=== PATIENT | female | born 1975 | race Caucasian/White ===

== ENCOUNTER 2024-12-24 10:04 | Emergency (ER) | payer MEDICAID, SELFPAY ==
[2024-12-24 10:32] VITALS: BP 184/134; BP 186/124; PULSE 78; RESP 18; TEMP 36.4; O2SAT 98; BMI 36.6
--- NOTE | 2024-12-24 11:05 | EDNOTE_ITS ---
ED Skin Abcess FB-RME/HPI General Chief complaint: Skin/Abscess/Foreign Body Stated complaint: Right leg abscess Time Seen by Provider: 12/24/24 10:29 Arrival date/time: 12/24/24 10:04 Limitations: no limitations RME / HPI RME / HPI narrative: 49-year-old female with past medical history of Alexa's thyroiditis, hypertension, CABG, hyperlipidemia presents for evaluation of right pelvic lesion x 3 days. She describes it is painful and swollen. She denies fever, spreading redness, weakness, numbness, tingling, back pain, neck pain, chest pain, shortness of breath. She states that she was seen by her primary care doctor and advised to take sitz bath's. She is currently taking doxycycline for these concerns. Patient states she has had a tetanus within the last 5 years. MD complaint: abscess/boil Onset (ago): day(s) Tetanus up to date: yes Location: genitals Consistency: constant Relieving factors: none Exacerbating factors: palpation Context: none Associated symptoms: denies other symptoms Related Data Home Medications ?Medication ?Instructions ?Recorded ?Confirmed levothyroxine 125 mcg tablet 125 mcg PO QDAY 07/10/19 07/19/22 atorvastatin 40 mg tablet 40 mg PO QDAY 07/19/2207/19 carvedilol 3.125 mg tablet 3.125 mg PO QDAY 07/19/22 0 07/19/22 dapagliflozin propanediol 10 mg 10 mg PO QDAY 07/19/22 07/19/22 tablet (Farxiga) furosemide 20 mg tablet 20 mg PO QDAY 07/19/2207/19 hydrocodone 5 mg-acetaminophen 325 1 tab PO Q6H PRN Pa in 07/19/22 07/19/22 mg tablet lisinopril 10 mg tablet 10 mg PO QDAY 07/19/2207/19 potassium chloride 20 mEq 20 meq PO QDAY 07/19/2207/08 tablet,extended release(part/cryst) torsemide 10 mg tablet 10 mg PO QDAY 07/19/2207/19 Previous Rx's ?Medication ?Instructions ?Recorded tramadol 100 mg tablet 100 mg PO Q6H PRN pain #20 t abs 07/02/22 amoxicillin 875 mg-potassium 1 tab PO BID #14 tabs 06/29 clavulanate 125 mg tablet doxycycline hyclate 100 mg capsule 100 mg PO BID #14 c aps 07/19/22 albuterol sulfate 90 mcg/actuation 2 inh inhalation Q4 H PRN shortness 03/11/24 aerosol inhaler of breath or wheezing #8.5 g leonidas Allergies Allergy/AdvReac Type Severity Reaction Status Date / Time nitrofurantoin AdvReac Severe VOMITING Verified 12/24/24 10:09 Review of Systems Constitutional Constitutional: Denies body ache(s), Denies chills, Denies fever(s), Denies headache(s) and Denies lethargy ENT Ears, Nose, Mouth, and Throat: Denies disequilibrium, Denies dizziness, Denies otalgia, Denies facial pain, Denies headache(s) and Denies neck pain Cardiovascular Cardiovascular: Denies chest pain, Denies dyspnea and Denies leg edema Respiratory Respiratory: Denies cough and Denies dyspnea Gastrointestinal Gastrointestinal: Denies abdominal pain, Denies change in bowel habits, Denies nausea and Denies vomiting Genitourinary Genitourinary: Denies dysuria, Reports genital lesions, Denies hematuria, Denies vaginal discharge and Denies vaginal pruritus Musculoskeletal Musculoskeletal: Denies arthralgias, Denies back pain and Denies neck pain Integumentary/Breasts Skin/Breast: Reports erythema, Reports furuncle, Reports new lesions, Reports skin pain and Reports skin swelling Neurologic Neurologic: Denies disequilibrium, Denies dizziness and Denies headache(s) Past Medical History Past Medical History CARDIAC: Positive Cardiac Disorders and Congestive Heart Failure RESPIRATORY: Negative Chronic Obstructive Pulmonary Disease (COPD) or Asthma GENITOURINARY: Positive Kidney Stones; Negative Renal Disease ENDOCRINE: Positive Hypothyroidism; Negative Diabetes Mellitus Type 1 or Diabetes Mellitus Type 2 HEMATOLOGIC: Negative Sickle Cell Disease Family History FAMILY HISTORY: Negative Family Respiratory Disorders, Family Cardiac Disorders or Family Gastrointestinal Problems Social History SMOKING STATUS: Current every day smoker SECOND HAND EXPOSURE: No SUBSTANCE USE: marijuana and methamphetamine ED Exam General Limitations: Present no limitations General appearance: Present alert and in no apparent distress Head Head exam: Present atraumatic and normocephalic Eye Eye exam: Present normal appearance and EOMI ENT ENT exam: Present mucous membranes moist Neck Neck exam: Present normal inspection and full ROM Chest Chest inspection: Present normal inspection and symmetric chest wall rise Respiratory Respiratory exam: Present normal lung sounds bilaterally; Absent wheezes Cardiovascular Cardiovascular exam: Present regular rate and +S1 Abdominal Exam Abdominal exam: Present soft; Absent distention Rectal Exam Rectal exam: Present deferred External exam: Present lesions (Circular, 3 cm, erythematous lesion left groin with purulent discharge upon palpation. Minimal surrounding erythema. Mild induration without crepitus.) Extremities Exam Extremities exam: Present normal inspection and full ROM Back Exam Back exam: Present normal inspection and full ROM Neurological Exam Neurological exam: Present alert and normal gait Psychiatric Psychiatric exam: Present normal affect Skin Skin exam: Present warm, dry and other (Erythematous lesion left groin with purulent discharge upon palpation.) Course Quality Measures none Reevaluation(s) Reevaluation #1: Lesion drain upon palpation during examination. Noncellulitic in appearance. Mildly indurated with no surrounding erythema or warmth. Patient is currently on doxycycline which we advised her to continue to take. Time: 11:05 Vital Signs Vital signs: Vital Signs Temperature 97.5 F 12/24/24 10:32 Pulse Rate 78 12/24/24 10:32 Respiratory Rate 18 12/24/24 10:32 Blood Pressure 186/124 H 12/24/24 10:32 Pulse Oximetry (%) 98 12/24/24 10:32 Oxygen Delivery Method Room Air 12/24/24 10:32 Pulse ox 90% on room air, within normal limits. Skin / Abscess / Foreign Body MDM Narrative MDM Narrative:: 49-year-old female presented for evaluation of abscess left groin for which she is currently taking doxycycline. Vital signs reassuring. Noncellulitic in appearance. Purulent drainage from lesion during examination which the patient reported provided some relief. No need for incision and drainage at this time. Patient was advised to continue to take Doxy cycling given good MRSA coverage. I advised her to continue to take sitz bath's and to apply topical antibiotic ointment as needed. Ultimately patient was discharged home with plan to follow- up with primary care within the next week for reevaluation. Return precautions were provided. Patient data External records reviewed:: [facility] previous records Clinical information provided by:: patient Social determinants that could affect healthcare access:: none Patient has the following chronic illnesses:: Hyperlipidemia, hypertension, Alexa's, asthma. How is presenting disease/condition affected by chronic disease/condition?: uneffected by Evaluation data The following diagnostics were reviewed and interpreted by me:: other (specify) Lab and/or radiology exams considered but not ordered:: Considered not ordered. Interpretation Summary: Considered not ordered. Medications / Prescriptions Medications or Prescriptions considered but not ordered:: Considered not ordered. Medication administrations:: Considered not ordered. Consultations Consultation(s) initiated? (list below): No Diagnosis Skin/Abscess Differential Diagnosis: abscess of skin or subcutaneous tissue, cellulitis, insect bites and contact dermatitis Most likely diagnosis given after review of the tests above:: Abscess pelvic region. Admission Indicated Admission indicated?: not indicated Admission Request Was there a request for admission?: No Disposition Plan Disposition Plan: Discharge Discharge Attestation Discharge Attestation: The patient and all family members were given an opportunity to ask questions and understood the discharge instructions. Discharge instructions specifically effects, indications for sooner follow up or return to the emergency department, and the expected course of current diagnosis. Patient condition: Stable Discharge Plan Plan Patient Disposition: HOME (Self Care) Discharge Disposition comment: Stable Prescriptions/Referrals Prescriptions/Med Rec: No Action levothyroxine 125 mcg Tablet 125 mcg PO QDAY atorvastatin 40 mg tablet 40 mg PO QDAY hydrocodone-acetaminophen 5-325 mg tablet 1 tab PO Q6H PRN (Reason: Pain) Patient Comments: TAKE 1 TABLET BY MOUTH EVERY 6 HOURS NEEDED FOR PAIN torsemide 10 mg tablet 10 mg PO QDAY Patient Comments: TAKE 1 TABLET BY MOUTH ONCE DAILY carvedilol 3.125 mg tablet 3.125 mg PO QDAY Patient Comments: TAKE 1 TABLET BY MOUTH TWICE DAILY potassium chloride 20 mEq tablet,ER particles/crystals 20 meq PO QDAY lisinopril 10 mg tablet 10 mg PO QDAY furosemide 20 mg tablet 20 mg PO QDAY Farxiga 10 mg tablet 10 mg PO QDAY Patient Comments: TAKE 1 TABLET BY MOUTH ONCE DAILY amoxicillin-pot clavulanate 875-125 mg tablet 1 tab PO BID Qty: 14 0RF doxycycline hyclate 100 mg capsule 100 mg PO BID Qty: 14 0RF albuterol sulfate 90 mcg/actuation HFA aerosol inhaler 2 inh inhalation Q4H PRN (Reason: shortness of breath or wheezing) Qty: 8.5 0RF tramadol 100 mg tablet 100 mg PO Q6H PRN (Reason: pain) Qty: 20 0RF Problem List Clinical Impression: Abscess of skin or subcutaneous tissue Patient/Caregiver Discharge Instructions Education Materials: Discharge Instructions for Cellulitis Additional Instructions: Continue to take doxycycline as instructed. Continue to do sitz bath's x 3 times daily. You may apply bandage with antibiotic ointment on it while you are at work. Take Tylenol or ibuprofen every 6 hours as needed for pain and swelling. Plan to follow-up with primary care within the next 3 to 4 days for reevaluation. Return to the ED if your symptoms worsen or change. Print Language: Amharic Stand Alone Forms: Sheila Award Info., Patient Portal Info Letter PA/ELEVATOR ADJUSTER Supervising Physician PA/ELEVATOR ADJUSTER Supervising Physician: Dr. Celis
== END 2024-12-24 13:11 | disposition home or self-care (01) ==
LOC: SERX 11:24
PROVIDERS: Emergency Provider Emergency Medicine
DX: L02.415 Cutaneous abscess of right lower limb (principal)
CPT/HCPCS: 99281

== ENCOUNTER 2025-01-21 11:54 | Emergency (ER) | payer MEDICAID, SELFPAY ==
[2025-01-21 11:54] VITALS: BMI 34.8
--- NOTE | 2025-01-21 11:58 | EKG_ITS ---
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
[2025-01-21 12:03] VITALS: BP 144/91; BP 153/99; PULSE 78; RESP 18; TEMP 36.7; O2SAT 96
--- NOTE | 2025-01-21 12:30 | XR_ITS ---
Examination: Upright PA lateral chest 2 views TECHNIQUE: Upright PA lateral chest 2 views Date and time: January 21, 2025 1313 hours INDICATIONS: Chest pain today COMPARISON: 03/31/2024 FINDINGS: Mild prominence left ventricle. Median sternotomy wires. No pneumonia or pulmonary edema IMPRESSION: No active disease.
--- NOTE | 2025-01-21 12:31 | PD.EDRME ---
Rapid Medical Screening Exam RME Arrival date/time: 01/21/25 11:54 50-year-old female with history of CKD, open heart surgery, CHF presents department today for malaise of elevated blood pressure Chief Complaint: Shortness of Breath/Dyspnea Vital signs: Vital Signs Temperature 98.0 F 01/21/25 12:03 Pulse Rate 78 01/21/25 12:03 Respiratory Rate 18 01/21/25 12:03 Blood Pressure 153/99 H 01/21/25 12:03 Pulse Oximetry (%) 96 01/21/25 12:03 Oxygen Delivery Method Room Air 01/21/25 12:03
[2025-01-21 13:28] LABS: Collection Type, Urine Clean Catch
[2025-01-21 13:32] LABS: Basophils # (Auto) 0.1 Thou/mm3 (0.0-0.2); Basophils % (Auto) 1 % (0-2.5); Eosinophils # (Auto) 0.0 Thou/mm3 (0.0-0.5); Eosinophils % (Auto) 0 % (0-10); Hematocrit 40.5 % (36.0-46.0); Hemoglobin 14.7 g/dL (12.0-16.0); Immature Granulocytes Auto 0.02 Thou/mm3 (0.00-0.00); Lymphocytes # (Auto) 1.6 Thou/mm3 (1.0-4.8); Lymphocytes % (Auto) 21 % (10-50); Mean Corpuscular HGB Conc 36.3 g/dl (31.0-37.0); Mean Corpuscular Hemoglobin 35.7 pg (25.0-35.0); Mean Corpuscular Volume 98 fL (80-100); Monocytes # (Auto) 0.7 Thou/mm3 (0.0-0.8); Monocytes % (Auto) 10 % (0-12); Neutrophils # (Auto) 5.0 Thou/mm3 (1.8-7.7); Neutrophils % (Auto) 68 % (37-80); Nucleated Red Blood Cell # 0.00 Thou/mm3 (0.00-0.00); Nucleated Red Blood Cell % 0 /100 WBC (0); Platelet Count 300 Thou/mm3 (140-440); RDW Standard Deviation 46.7 fL (36.4-46.3); Red Blood Count 4.12 Miln/mm3 (4.00-5.20); White Blood Count 7.4 Thou/mm3 (3.6-11.0)
[2025-01-21 13:34] LABS: Bilirubin,Urine Negative (Negative); Blood,Urine Negative (Negative); Clarity,Urine Clear (Clear/Hazy); Color,Urine Colorless (Lt Yel-Yel); Glucose, Urine 3+ (Negative); Ketones,Urine Negative (Negative); Leukocyte Esterase,Urine Positive (Negative); Nitrite,Urine Negative (Negative); PH,Urine 7.0 (5.0-7.0); Protein,Urine Negative (Neg - Trace); RBC,Urine 1 /hpf (0-3); Specific Gravity,Urine 1.007 (1.001-1.035); Squamous Epithelial Cell,Urine 6 /hpf (0-5); Urobilinogen,Urine Negative mg/dL (0.0-1.0); WBC,Urine 7 /hpf (0-5)
[2025-01-21 13:42] LABS: Amphetamine/Methamp Scrn,U Negative (Negative); Barbiturate Screen,Urine Negative (Negative); Benzodiazepines Screen,Urine Negative (Negative); Benzoylecgonine Screen, Ur Negative (Negative); Fentanyl Screen,Urine Negative (Negative); Opiate Screen,Urine Negative (Negative); THC Screen,Urine Positive (Negative)
[2025-01-21 13:46] LABS: INR 1.0 (0.9-1.3); Partial Thromboplastin Time 25.9 Seconds (22.0-36.0); Prothrombin Time 11.4 Seconds (9.0-12.2)
[2025-01-21 13:48] LABS: HCG,Qualitative Serum Negative
[2025-01-21 13:50] LABS: B-Type Natriuretic Peptide 52 pg/mL (0-100)
[2025-01-21 13:52] LABS: Alanine Aminotransferase 276 U/L (10-49); Albumin, Serum 4.3 gm/dL (3.5-5.0); Albumin/Globulin Ratio 1.2 (1.2-2.2); Alkaline Phosphatase 190 U/L (46-116); Anion Gap 10 (7-16); Aspartate Amino Transferase 288 U/L (0-34); BUN/Creatinine Ratio 10 Ratio (12-20); Bilirubin,Total 0.7 mg/dL (0.3-1.2); Blood Urea Nitrogen 12 mg/dL (9-23); Calcium 9.2 mg/dL (8.3-10.6); Calcium (Corrected) 9.2 mg/dL (8.5-10.1); Carbon Dioxide 26.1 mMol/L (20.0-31.0); Chloride 103 mMol/L (98-107); Creatinine (Component) 1.2 mg/dL (0.6-1.3); Estimated Creatinine Clearance 67.7 mL/min (>60); Globulin 3.7 gm/dL (2.3-3.5); Glucose 96 mg/dL (74-106); Lipase 60 U/L (12-53); Magnesium 1.5 mg/dL (1.6-2.6); Osmolality,Calculated 277 (275-295); Potassium 3.2 mMol/L (3.4-5.1); Sodium 139 mMol/L (136-145); Total Protein 8.0 gm/dL (5.7-8.2); Troponin I < 0.020 ng/mL (0.0-0.045); eGFR 56 See Note
[2025-01-21] MEDS: MAGNESIUM OXIDE 400 MG TABLET PO (14:20)
--- NOTE | 2025-01-21 15:27 | EDNOTE_ITS ---
ED SOB =RME/HPI General Chief Complaint: Shortness of Breath/Dyspnea Stated Complaint: SOB, HTN, CHEST PAIN Time Seen by Provider: 01/21/25 13:54 Arrival date/time: 01/21/25 11:54 RME / HPI RME / HPI Narrative: 01/21/25 11:54 50-year-old female with history of CKD, open heart surgery, CHF presents department today for malaise of elevated blood pressure. Also complaining of shortness of breath. Symptoms been ongoing for several weeks. Severity of symptoms mild. Patient denies any cough denies any chest pain denies any other complaints no medication was taken prior travel. Related Data Home Medications ?Medication ?Instructions ?Recorded ?Confirmed levothyroxine 125 mcg tablet 125 mcg PO QDAY 07/10/19 07/19/22 atorvastatin 40 mg tablet 40 mg PO QDAY 07/19/2207/19 carvedilol 3.125 mg tablet 3.125 mg PO QDAY 07/19/22 0 07/19/22 dapagliflozin propanediol 10 mg 10 mg PO QDAY 07/19/22 07/19/22 tablet (Farxiga) furosemide 20 mg tablet 20 mg PO QDAY 07/19/2207/19 hydrocodone 5 mg-acetaminophen 325 1 tab PO Q6H PRN Pa in 07/19/22 07/19/22 mg tablet lisinopril 10 mg tablet 10 mg PO QDAY 07/19/2207/19 potassium chloride 20 mEq 20 meq PO QDAY 07/19/2207/08 tablet,extended release(part/cryst) torsemide 10 mg tablet 10 mg PO QDAY 07/19/2207/19 Previous Rx's ?Medication ?Instructions ?Recorded tramadol 100 mg tablet 100 mg PO Q6H PRN pain #20 t abs 07/02/22 amoxicillin 875 mg-potassium 1 tab PO BID #14 tabs 06/29 clavulanate 125 mg tablet doxycycline hyclate 100 mg capsule 100 mg PO BID #14 c aps 07/19/22 albuterol sulfate 90 mcg/actuation 2 inh inhalation Q4 H PRN shortness 03/11/24 aerosol inhaler of breath or wheezing #8.5 g leonidas Allergies Allergy/AdvReac Type Severity Reaction Status Date / Time nitrofurantoin AdvReac Severe VOMITING Verified 01/21/25 11:56 Review of Systems Review of Systems Narrative Review of Systems: Review of system reviewed and within normal limits except mentioned in HPI ED Exam Narrative Physical exam: VITAL SIGNS: Reviewed. GENERAL APPEARANCE: Alert and interactive, follows commands, no acute distress, HEAD AND FACE: Non-traumatic. ENT: PERRL, pink conjunctivitis, eyelid no trauma, Mucous membrane moist. NECK: Supple, nontender, no nuchal rigidity. CHEST: No tenderness, no crepitus, no paradoxical movement, no retractions. LUNGS: Clear, well ventilated, symmetric, no rales, no wheezing, no ronchi, no stridor, good breath sounds bilaterally. HEART: Regular rate, regular rhythm, no murmur, no gallops. ABDOMEN: Soft, positive bowel sounds, nondistended, no guarding, nontender, no rebound, no masses, RECTAL: Deferred. GENITAL: Deferred. NEUROLOGICAL: Gross motor function intact sensory function intact, Appropriate for age. MUSCULOSKELETAL: low back nontender, full range of motion. EXTREMITIES: Nontender, full range of motion. SKIN: Color pink, dry, no rash, no lacerations, no abrasions, no contusions. LYMPHATICS: Deferred. Course Quality Measures none Orders Category Date Time Status EKG (ED ONLY) *Do not use* NOW Care 01/21/25 11:58 Completed EKG (ED Only) Stat Exams 01/21/25 11:58 Draft XR chest 2V Stat Exams 01/21/25 12:30 Completed B-Type Natriuretic Peptide Stat Lab 01/21/25 13:08 Completed CBC Stat Lab 01/21/25 13:08 Completed Comprehensive Metabolic Panel Stat Lab 01/21/25 13:08 Completed Drug Screen,Urine Stat Lab 01/21/25 13:15 Completed HCG,Qualitative Serum Stat Lab 01/21/25 13:08 Completed Lipase Stat Lab 01/21/25 13:08 Completed Magnesium Stat Lab 01/21/25 13:08 Completed Partial Thromboplastin Time Stat Lab 01/21/25 13:08 Completed Prothrombin Time with INR Stat Lab 01/21/25 13:08 Completed Troponin I Stat Lab 01/21/25 13:08 Completed Urinalysis Stat Lab 01/21/25 13:15 Completed Magnesium Oxide [Mag-Ox 400] Med 01/21/25 13:56 Discontinued 400 mg PO X1 ONE Potassium Chloride [K-Dur] Med 01/21/25 13:56 Discontinued 40 meq PO X1 ONE Vital Signs Vital signs: Vital Signs Temperature 98.0 F 01/21/25 12:03 Pulse Rate 78 01/21/25 12:03 Respiratory Rate 18 01/21/25 12:03 Blood Pressure 153/99 H 01/21/25 12:03 Pulse Oximetry (%) 96 01/21/25 12:03 Oxygen Delivery Method Room Air 01/21/25 12:03 Shortness of Breath / Dyspnea [facility] Narrative MDM Narrative:: 50-year-old female with history of CKD, open heart surgery, CHF presents department today for malaise of elevated blood pressure. Also complaining of shortness of breath. Symptoms been ongoing for several weeks. Severity of symptoms mild. Patient denies any cough denies any chest pain denies any other complaints no medication was taken prior travel. Patient's cardiac workup all came back unremarkable. Except for potassium of 3.2. I personally reviewed and interpreted the x-ray of this patient. There is no acute abnormalities found, no infiltrates no pneumothorax no hemothorax normal chest x-ray. Review of other structures was without significant abnormal findings also. I additionally reviewed the radiologist report and agree with the interpretation. Patient's blood pressure was noted to be 144/91 prior to discharge. EKG showed sinus rhythm, ventricular rate of 74 bpm, no ST segment elevation or depression noted. Patient data External records reviewed:: None Clinical information provided by:: patient Social determinants that could affect healthcare access:: none Patient has the following chronic illnesses:: Hypertension, history of congestive heart failure How is presenting disease/condition affected by chronic disease/condition?: exacerbated by Evaluation data The following diagnostics were reviewed and interpreted by me:: lab results, radiology exam(s) and EKG tracing(s) Lab and/or radiology exams considered but not ordered:: None Interpretation Summary: See results [facility] Medications / Prescriptions Medications or Prescriptions considered but not ordered:: None Medication administrations:: Medication Administration History Discontinued Medications Magnesium Oxide (Magnesium Oxide 400 Mg Tablet) 400 mg PO X1 ONE Stop: 01/21/25 13:57 Last Admin: 01/21/25 14:20 Dose: 400 mg Documented By: Potassium Chloride (Potassium Chloride 20 Meq Tabcr) 40 meq PO X1 ONE Stop: 01/21/25 13:57 Last Admin: 01/21/25 14:21 Dose: 40 meq Documented By: Potassium magnesium Consultations Consultation(s) initiated? (list below): No Diagnosis Shortness of Breath Differential Diagnosis: acute exacerbation of chronic obstructive airways disease, congestive heart failure and community acquired pneumonia Most likely diagnosis given after review of the tests above:: Shortness of breath Admission Indicated Admission indicated?: not indicated Explain why admission is indicated or not indicated:: Stable Admission Request Was there a request for admission?: No Disposition Plan Disposition Plan: Discharge Discharge Attestation Discharge Attestation: The patient was given an opportunity to ask questions and understood the discharge instructions. Discharge instructions specifically effects, indications for sooner follow up or return to the emergency department, and the expected course of current diagnosis. Patient condition: Stable Discharge Plan Plan Patient Disposition: HOME (Self Care) Discharge Disposition comment: Stable Prescriptions/Referrals Prescriptions/Med Rec: No Action levothyroxine 125 mcg Tablet 125 mcg PO QDAY atorvastatin 40 mg tablet 40 mg PO QDAY hydrocodone-acetaminophen 5-325 mg tablet 1 tab PO Q6H PRN (Reason: Pain) Patient Comments: TAKE 1 TABLET BY MOUTH EVERY 6 HOURS NEEDED FOR PAIN torsemide 10 mg tablet 10 mg PO QDAY Patient Comments: TAKE 1 TABLET BY MOUTH ONCE DAILY carvedilol 3.125 mg tablet 3.125 mg PO QDAY Patient Comments: TAKE 1 TABLET BY MOUTH TWICE DAILY potassium chloride 20 mEq tablet,ER particles/crystals 20 meq PO QDAY lisinopril 10 mg tablet 10 mg PO QDAY furosemide 20 mg tablet 20 mg PO QDAY Farxiga 10 mg tablet 10 mg PO QDAY Patient Comments: TAKE 1 TABLET BY MOUTH ONCE DAILY amoxicillin-pot clavulanate 875-125 mg tablet 1 tab PO BID Qty: 14 0RF doxycycline hyclate 100 mg capsule 100 mg PO BID Qty: 14 0RF albuterol sulfate 90 mcg/actuation HFA aerosol inhaler 2 inh inhalation Q4H PRN (Reason: shortness of breath or wheezing) Qty: 8.5 0RF tramadol 100 mg tablet 100 mg PO Q6H PRN (Reason: pain) Qty: 20 0RF Referrals: No Primary/Family,Physician [Primary Care Provider] - In 1 week Problem List Clinical Impression: Shortness of breath Patient/Caregiver Discharge Instructions Discharge Activity: activity as tolerated Education Materials: ED Shortness of Breath (Dyspnea) Additional Instructions: Thank you for the opportunity for serving you today. You are stable for discharged . You are advised to: Follow-up with your doctor's assistant in 1 to 2 days Return to ED for worsening of symptoms Print Language: Slovenian Stand Alone Forms: Sheila Award Info., Patient Portal Info Letter PA/LOCOMOTIVE SUPERVISOR Supervising Physician JEWEL/PAGE Supervising Physician: MD Samara
== END 2025-01-21 16:00 | disposition home or self-care (01) ==
PROVIDERS: Nurse Practitioner Primary Care; Emergency Provider Family Medicine
DX: R06.02 Shortness of breath (principal); R07.9 Chest pain, unspecified; R94.31 Abnormal electrocardiogram [ECG] [EKG]; I13.0 Hypertensive heart and chronic kidney disease with heart failure and stage 1 through stage 4 chronic kidney disease, or unspecified chronic kidney disease; I50.9 Heart failure, unspecified; N18.9 Chronic kidney disease, unspecified
CPT/HCPCS: 36415; 71046; 80053; 80307; 81001; 83690; 83735; 83880; 84484; 84703; 85025; 85610; 85730; 93005; 99284; A9270